=== PATIENT | male | born 1955 | race Asian ===

== ENCOUNTER 2021-03-23 22:46 | Observation (INO) ==
[2021-03-24] MEDS ORDERED: Naloxone 0.4 MG/ML INJ IVP PRN (04:17)
[2021-03-24] MEDS ORDERED: Ondansetron 4 MG/2 ML VIAL IVP PRN (04:17)
[2021-03-24] MEDS ORDERED: 0.9 % Sodium Chloride 1,000 ML IVC SCH (04:30)
[2021-03-24] MEDS ORDERED: D5% in Water 1,000 ML IVC PRN (05:19)
[2021-03-24] MEDS ORDERED: Dextrose Gel 15 GM/37.5 ML TUBE PO PRN ×2 (05:19)
[2021-03-24] MEDS ORDERED: *HR* Dextrose 50 % in Water (Vial) 50 ML VIAL IVP PRN (05:19)
[2021-03-24 05:54] LABS: Basophils % 0.2 %; Hematocrit 36.8 % (37.5-50.1); Hemoglobin 12.9 g/dL (12.9-16.9); Immature Granulocytes % 0.4 % (0-4); Lymphocytes # 0.7 K/mcL (0.6-4.6); Lymphocytes % 6.3 %; Mean Corpuscular HGB Conc 35.1 g/dL (31.6-35.5); Mean Corpuscular Hemoglobin 30.7 pg (28.0-33.3); Mean Corpuscular Volume 87.6 fL (83.0-100.0); Mean Platelet Volume 10.3 fL (9.4-12.4); Monocytes # 0.4 K/mcL (0.0-1.3); Monocytes % 3.7 %; Neutrophils # 10.6 K/mcL (1.6-8.9); Platelet Count 122 K/mcL (140-400); Red Cell Distribution Width 12.5 % (11.5-14.5); Segmented Neutrophils % 89.4 %; White Blood Count 11.8 K/mcL (4.3-11.1)
[2021-03-24] MEDS ORDERED: Acetaminophen 325 MG TABLET PO PRN (06:00)
[2021-03-24 06:09] LABS: INR 1.2; Prothrombin Time 13.3 Seconds (9.4-12.1)
[2021-03-24 06:35] LABS: Alanine Aminotransferase 13 Units/L (7-52); Albumin/Globulin Ratio 1.7 (1.1-2.2); Alkaline Phosphatase 38 Units/L (34-104); Aspartate Amino Transferase 20 Units/L (13-39); BUN/Creatinine Ratio 20 (6-26); Bilirubin,Total 0.6 mg/dL (0.3-1.0); Blood Urea Nitrogen 18 mg/dL (8-23); Calcium 8.7 mg/dL (8.6-10.3); Carbon Dioxide 23 mEq/L (23-29); Chloride 105 mEq/L (98-107); Globulin 2.3 g/dL (2.4-3.5); Glucose 176 mg/dL (70-105); Osmolality,Calculated 288 (280-300); Potassium 4.2 mEq/L (3.5-5.1); Sodium 136 mEq/L (136-145); Total Protein 6.3 g/dL (6.4-8.9); eGFR For African Americans > 60 (> 60); eGFR For Non-African Americans > 60 (> 60)
[2021-03-24] MEDS: Ascorbic Acid 500 MG TABLET PO SCH (08:37)
[2021-03-24] MEDS: Aspirin Enteric Coated 81 MG Tablet PO SCH (08:37)
[2021-03-24] MEDS: Insulin LISPRO 300 UNITS/3 ML VIAL SUBQ SCH ×3 (08:38→16:03)
[2021-03-24] MEDS ORDERED: PSYLLIUM HUSK PO SCH (09:00)
[2021-03-24] MEDS ORDERED: ASPARTAME PO SCH (09:00)
[2021-03-24 09:17] LABS: Clarity,Urine Cloudy (Clear); Color,Urine Dark-Red (Yellow)
[2021-03-24] MEDS: Psyllium 1 PACKET POWD.PACK PO SCH (12:28)
[2021-03-24] MEDS ORDERED: Insulin LISPRO 300 UNITS/3 ML VIAL SUBQ SCH (21:00)
[2021-03-25 03:56] LABS: Hematocrit 34.9 % (37.5-50.1); Hemoglobin 12.4 g/dL (12.9-16.9); Mean Corpuscular HGB Conc 35.5 g/dL (31.6-35.5); Mean Corpuscular Hemoglobin 31.6 pg (28.0-33.3); Mean Platelet Volume 10.7 fL (9.4-12.4); Platelet Count 112 K/mcL (140-400); Red Blood Count 3.92 M/mcL (4.19-5.50); Red Cell Distribution Width 12.8 % (11.5-14.5); White Blood Count 8.4 K/mcL (4.3-11.1)
[2021-03-25 04:16] LABS: BUN/Creatinine Ratio 22 (6-26); Blood Urea Nitrogen 19 mg/dL (8-23); Calcium 8.9 mg/dL (8.6-10.3); Carbon Dioxide 26 mEq/L (23-29); Chloride 107 mEq/L (98-107); Chol/HDL Ratio 2.8 (0-4.9); Cholesterol 88 mg/dL (< 200); Glucose 109 mg/dL (70-105); HDL Cholesterol 31 mg/dL (40-59); LDL Cholesterol,Calculated 31 mg/dL (< 100); Magnesium 1.9 mg/dL (1.6-2.6); Osmolality,Calculated 293 (280-300); Potassium 3.8 mEq/L (3.5-5.1); Sodium 140 mEq/L (136-145); Triglycerides 130 mg/dL (< 150); eGFR For African Americans > 60 (> 60); eGFR For Non-African Americans > 60 (> 60)
[2021-03-25 04:55] LABS: Estimated Average Glucose 134 mg/dl; Hemoglobin A1C 6.3 %
[2021-03-25] MEDS: Insulin LISPRO 300 UNITS/3 ML VIAL SUBQ SCH ×2 (07:39→11:11)
[2021-03-25] MEDS: Aspirin Enteric Coated 81 MG Tablet PO SCH (08:00)
[2021-03-25] MEDS: Ascorbic Acid 500 MG TABLET PO SCH (08:01)
[2021-03-25] MEDS: Psyllium 1 PACKET POWD.PACK PO SCH (08:01)
[2021-03-25] MEDS ORDERED: Sennosides 8.6 MG TABLET PO PRN (10:50)
[2021-03-25] MEDS ORDERED: Sennosides/Docusate Sodium TABLET PO PRN (10:52)
[2021-03-25 11:16] VITALS: BP 113/61
== END 2021-03-25 14:26 | disposition home or self-care (01) ==
LOC: CDU → SUATTDRO 03-24 03:21
PROVIDERS: ADMIT Internal Medicine; ATTEND Student in an Organized Health Care Education/Training Program